=== PATIENT | male | born 1975 | race Caucasian/White ===

== ENCOUNTER 2016-09-03 18:57 | Emergency (ER) | payer MEDICAID ==
[~2016-09-03] VITALS: Ht 177.8 cm; Wt 95.0 kg
[2016-09-03 19:00] VITALS: Ht 177.8 cm; Wt 95.0 kg
[2016-09-03] MEDS ORDERED: IBUP-1542 PO (19:10)
[2016-09-03] MEDS ORDERED: BACTDS PO (19:10)
[2016-09-03] MEDS ORDERED: CEPH-443 PO (19:10)
--- NOTE | 2016-09-03 19:15 | ERD ---
ER Documentation Chief Complaint Date/Time DATE: 09/03/16 TIME: 19:12 Chief Complaint neck pain x 5 days HPI 41-year-old male presents to emergency department for complaints of a bump in the left cervical area, more on the scalp area, also noted some other bumps Surrounding It. Patient Is Complaining of Pain Throbbing Pain, 4/10 Scale, Worse upon Touching the Area. Patient Denies Any Discharge from the Area. Patient Denies Any Fever or Chills. Patient Took Some Tylenol for Pain with Mild Relief. ROS All systems reviewed and are negative except as per history of present illness. Medications Home Meds Active Scripts Sulfamethoxazole-Trimethoprim* (Bactrim* DS) 800-160 Mg Tab, 1 TAB PO BID for 10 Days, TAB Prov:ROWENA [employer]KS [employer] 09/03/16 Cephalexin* (Keflex*) 500 Mg Capsule, 500 MG PO QID for 10 Days, CAP Prov:ROWENA MARKS [employer] CHA[employer] 09/03/16 Ibuprofen* (Motrin*) 600 Mg Tab, 600 MG PO Q6H Y for PAIN AND OR ELEVATED TEMP, #30 TAB Prov:ROWENA MARKS [employer] CHAIR 09/03/16 Allergies Allergies: Coded Allergies: No Known Allergy (Unverified , 09/03/16) PMhx/Soc Medical and Surgical Hx: pt denies Medical Hx, pt denies Surgical Hx FmHx Family History: No coronary disease, No diabetes, No other Physical Exam Vitals Vital Signs Date Time Temp Pulse Resp B/P Pulse Ox O2 Delivery O2 Flow Rate FiO2 09/03/16 19:00 97.5 61 20 136/92 100 Physical Exam GENERAL: The patient is well developed and appropriate for usual state of health, in no apparent distress. CHEST: Clear to auscultation bilaterally. There are no rales, wheezes or rhonchi. HEART: Regular rate and rhythm. No murmurs, clicks, rubs or gallops. No S3 or S4. ABDOMEN: Soft, nontender and nondistended. Good bowel sounds. No rebound or guarding. No gross peritonitis. No gross organomegaly or masses. No Mackay sign or McBurney point tenderness. BACK: No midline or flank tenderness. EXTREMITIES: Equal pulses bilaterally. There is no peripheral clubbing, cyanosis or edema. No focal swelling or erythema. Full range of motion. Grossly neurovascularly intact. NEURO: Alert and oriented. Cranial nerves 2-12 intact. Motor strength in all 4 extremities with 5/5 strength. Sensation grossly intact. Normal speech and gait. SKIN: Papular rash tender on palpation and induration noted in the lower back scalp area, with occipital lymphadenopathy noted. There is no apparent ecchymosis or petechia. The skin is warm and dry. HEMATOLOGIC AND LYMPHATIC: There is no evidence of excessive bruising or lymphedema. No gross cervical, axillary, or inguinal lymphadenopathy. Procedures/MDM Medical decision making: Patient symptoms like it consistent with folliculitis. There is occipital lymphadenopathy from this. No symptoms of sepsis at this time. Patient does not have any fever. Patient presents hemodynamically stable. No other lymph node inflammation. Patient was given for Bactrim, Keflex, ibuprofen, is advised to avoid scratching the area, apply warm compress on affected area. Patient is advised to return to emergency department for worsening symptoms with primary care doctor in 2-3 days for reevaluation of symptoms Departure Diagnosis: Primary Impression: Folliculitis Additional Impression: Lymphadenopathy Condition: Stable Patient Instructions: When Your Child Has Swollen Lymph Nodes, Folliculitis ROWENA MARKS NP Sep 03, 2016 19:15
== END 2016-09-03 19:12 | disposition home or self-care (01) ==
LOC: E/R 18:57
DX: L73.9 Follicular disorder, unspecified (principal); R59.0 Localized enlarged lymph nodes
CPT/HCPCS: 99284